=== PATIENT | female | born 1980 | race Caucasian/White ===

== ENCOUNTER → 2020-04-10 15:22 | Outpatient (BNVA) | payer OTHER, SELFPAY | PROVIDERS: Family Provider Nurse Practitioner Family; PCP Nurse Practitioner Family; Visit Provider Internal Medicine Rheumatology | DX: M05.79 Rheumatoid arthritis with rheumatoid factor of multiple sites without organ or systems involvement (principal); Z79.899 Other long term (current) drug therapy; H93.13 Tinnitus, bilateral; L81.9 Disorder of pigmentation, unspecified; D66 Hereditary factor VIII deficiency | CPT/HCPCS: 99214 ==

== ENCOUNTER → 2020-07-11 15:12 | Outpatient (BNVA) | payer OTHER, SELFPAY | PROVIDERS: Family Provider Nurse Practitioner Family; PCP Nurse Practitioner Family; Visit Provider Internal Medicine Rheumatology | DX: M05.79 Rheumatoid arthritis with rheumatoid factor of multiple sites without organ or systems involvement (principal); Z79.899 Other long term (current) drug therapy; D66 Hereditary factor VIII deficiency; H93.13 Tinnitus, bilateral | CPT/HCPCS: 99213; 99441 ==

== ENCOUNTER → 2021-03-21 14:53 | Outpatient (BNVA) | payer OTHER, SELFPAY | PROVIDERS: Family Provider Nurse Practitioner Family; PCP Nurse Practitioner Family; Visit Provider Internal Medicine Rheumatology | DX: M05.79 Rheumatoid arthritis with rheumatoid factor of multiple sites without organ or systems involvement (principal); Z79.899 Other long term (current) drug therapy; D66 Hereditary factor VIII deficiency; H93.19 Tinnitus, unspecified ear; Z87.892 Personal history of anaphylaxis; Z91.030 Bee allergy status; Z71.89 Other specified counseling | CPT/HCPCS: 99214 ==

== ENCOUNTER → 2021-05-02 11:48 | Outpatient (BNVA) | payer OTHER, SELFPAY | PROVIDERS: Family Provider Nurse Practitioner Family; PCP Nurse Practitioner Family; Visit Provider Nurse Practitioner Family | DX: Z20.822 Contact with and (suspected) exposure to COVID-19 (principal) | CPT/HCPCS: 87635 ==

== ENCOUNTER → 2021-09-05 08:50 | Outpatient (BNVA) | payer OTHER, SELFPAY | PROVIDERS: Family Provider Nurse Practitioner Family; PCP Nurse Practitioner Family; Visit Provider Nurse Practitioner Family | DX: Z20.822 Contact with and (suspected) exposure to COVID-19 (principal) | CPT/HCPCS: 87635 ==

== ENCOUNTER 2021-09-11 09:53 | Outpatient (CLI) | payer OTHER, SELFPAY ==
[2021-09-11 10:05] VITALS: BP 128/83; PULSE 64; RESP 18; TEMP 36.8; O2SAT 98; BMI 49.4
[2021-09-11 11:10] VITALS: BP 128/83; PULSE 64; RESP 18; TEMP 36.4; O2SAT 99
[2021-09-11 12:10] VITALS: BP 137/69; PULSE 77; RESP 16; TEMP 36.6; O2SAT 99
== END 2021-09-11 09:54 | disposition home or self-care (01) ==
LOC: OPS 09:56
PROVIDERS: PCP Nurse Practitioner Family; Visit Provider Nurse Practitioner
DX: U07.1 COVID-19 (principal)
CPT/HCPCS: 96365

== ENCOUNTER → 2022-02-11 14:15 | Outpatient (BNVA) | payer OTHER, SELFPAY | PROVIDERS: Visit Provider Obstetrics & Gynecology | DX: Z01.419 Encounter for gynecological examination (general) (routine) without abnormal findings (principal) | CPT/HCPCS: 87624 ==

== ENCOUNTER 2022-04-30 07:42 | Emergency (ER) | payer OTHER, BC, MEDICAID, SELFPAY ==
[2022-04-30 07:47] VITALS: BP 180/117; PULSE 96; RESP 17; TEMP 36.7; O2SAT 98; BMI 49.4
--- NOTE | 2022-04-30 08:21 | PC.NURSE ---
pt reports she woke up this morning and could barely move due to back pain. denies pain prior to bed. reports she just got back from camping and sleeping on an air mattress for a week. Reports pain is to right flank. pain is described as a stabbing pain that radiates down both legs with movement. Denies symptoms. reports good water intake. Denies injury.
--- NOTE | 2022-04-30 08:27 | W.ED.BACK ---
HPI - Back Pain/Injury General: Chief Complaint: Back Pain/Injury Stated Complaint: back pain Time Seen by Provider: 04/30/22 07:54 Source: patient Mode of arrival: ambulatory History of Present Illness: 41-year-old female presents emergency room with complaint of back pain. Pain is in the low back does not radiate into the legs she denies any difficulty with bowel or bladder. She had been camping over the weekend. She has been participating in more physical engaging activities. This morning she woke with severe back pain difficult time ambulating movement without pain. She has no radiation of pain into the lower extremities. No previous episodes of severe back pain no previous advanced imaging no previous interventions or surgeries. No recent identifiable triggering traumas. MD elicited complaint: back pain Pertinent past history: prior back pain Onset (ago): day(s) (1) Timing: constant Severity: moderate Similar Symptoms Previously: Yes Quality: aching Location: lumbar spine Radiation: none Exacerbating factors: none Relieving factors: none Context: while lifting, turning/twisting and bending Associated symptoms: Deny abdominal pain, arthralgias, chills, change in bowel habits, difficulty walking, dysuria, fatigue, fecal incontinence, fever(s), hematuria, myalgias, nausea, numbness, syncope, tingling/numbness/burning, urinary frequency, urinary urgency, vomiting or weakness Review of Systems Const: Denies: fever(s), chills or fatigue ENMT: Denies: throat pain, ear or mastoid pain, nasal discharge or nasal congestion Card: Denies: chest pain, palpitations or syncope Resp: Denies: dyspnea, productive cough or non-productive cough GI: Denies: abdominal pain, nausea, vomiting, fecal incontinence or change in bowel habits : Denies: flank pain, difficulty voiding, dysuria, urinary frequency, urinary urgency or hematuria Musc: Reports: back pain Skin/Breast: Denies: rash or pruritus Neuro: Denies: difficulty walking PFSH ED PFSH: Medical History Acute low back pain Allergic rhinitis due to allergen Discoloration of skin High risk medication use Immunization counseling Medication monitoring encounter No pertinent past medical history neghx: dm,htn,dvt/pe PCP: none Seropositive rheumatoid arthritis Seropositive rheumatoid arthritis of multiple sites Tinnitus of both ears Surgical History History of D&C History of ear surgery X4 Previous section Family History Father Bleeding disorder factor 9 hemophilia Family/Other Bleeding disorder paternal uncle factor 9 hemophilia Breast cancer paternal aunt X2 Uterine cancer paternal aunt Prostate cancer paternal uncle Denies family history of Rheumatoid arthritis Cervical cancer Colon cancer Ovarian cancer Diabetes Lupus Heart disease Hyperlipidemia Hypertension Thyroid disease Stroke Social History Smoking and tobacco status: former smoker Alcohol intake: never History of recent travel: No Physical Exam Const: COMMON NORMALS: no acute distress GENERAL APPEARANCE: cooperative and comfortable ORIENTATION/CONSCIOUSNESS: Yes awake, Yes oriented to person, Yes oriented to place and Yes oriented to time HENMT: COMMON NORMALS: normocephalic, atraumatic and hearing grossly normal bilaterally HEAD & SCALP: normocephalic and atraumatic Resp: COMMON NORMALS: normal respiratory effort, No retractions, No use of accessory muscles and clear to auscultation bilaterally AUSCULTATION: clear to auscultation bilaterally Cardio: COMMON NORMALS: regular rate, regular rhythm and No murmurs present (Cardio) RATE: regular rate RHYTHM: regular rhythm GI: COMMON NORMALS: Soft to palpation and No hepatosplenomegaly present AUSCULTATION: Yes normoactive bowel sounds PALPATION: Yes Soft to palpation, No Tenderness to palpation present (GI), No Guarding due to palpation present (GI) and Yes No hepatosplenomegaly present Extremity: COMMON NORMALS: normal to inspection, capillary refill normal, no clubbing, cyanosis or edema, no calf tenderness and no pedal edema Neuro: SENSORIUM/ORIENTATION: Yes oriented to person, Yes oriented to place and Yes oriented to time Skin: COMMON NORMALS: no rashes or lesions noted GENERAL SKIN EXAM: no rashes or lesions noted Course Vital Signs: Vital signs: Vital Signs Temperature 98.0 F 04/30/22 07:47 Pulse Rate 58 L 04/30/22 09:18 Respiratory Rate 18 04/30/22 09:18 Blood Pressure 134/89 04/30/22 09:18 Pulse Oximetry 98 04/30/22 09:18 Oxygen Delivery Me thod 04/30/22 07:47 MDM - Back Pain/Injury Medical Decision Making Musculoskeletal low back pain treat symptomatically follow-up with primary care if worsens return. Medical Records I reviewed the patient's medical records. Labs I reviewed the patient's lab results. Discharge Plan Discharge Patient Disposition: Home Clinical Impression: Strain of lumbar region Condition: Stable Prescriptions: New prednisone 20 mg tablet 20 mg PO TID Qty: 15 0RF Rx Instructions: 1 p.o. 3 times daily x3 days, 1 p.o. twice daily x2 days, 1 p.o. daily x2 days diclofenac sodium 75 mg tablet,delayed release (DR/EC) 75 mg PO Q12H PRN (Reason: pain) Qty: 20 0RF tizanidine 4 mg tablet 4 mg PO Q6H PRN (Reason: muscle spasticity) Qty: 20 0RF Rx Instructions: do not exceed 3 doses per 24 hrs No Action multivitamin Tablet 1 tab PO DAILY Orencia ClickJect 125 mg/mL auto-injector 125 mg SUBCUT .Q7days Qty: 4 3RF sulfasalazine 500 mg tablet 1 g PO BID Qty: 120 3RF Rx Instructions: Take 1 QD daily x1wk then 1 BID x1wk then 2 in AM and 1 HS for 1wk then stay on 2 BID. give with food (meal/snack) loratadine 10 mg capsule 10 mg PO BID Qty: 30 1RF fluticasone propionate 50 mcg/actuation spray,suspension 1 spray intranasal BID Qty: 16 1RF Rx Instructions: administer into each nostril norgestimate-ethinyl estradiol [Tri-Sprintec (28)] 0.18/0.215/0.25 mg-35 mcg (28) tablet 1 tab PO DAILY Qty: 84 0RF Discharge Orders: Discharge ED (Routine); Ordered 04/30/22 Ordered By: Jorge Sam Discharge Diet: Usual diet Discharge Activity: Limit activity as instructed Patient Instructions: Acute Low Back Pain (ED), Opioid Safety Activity Restrictions/Additional Instructions: Avoid stooping lifting and bending do not work below the waist or above the shoulders. Case management make arrangements for you to follow-up with primary care physician. Coding Level of Care Code ED [facility] [employer] for Cassy Bill
[2022-04-30] MEDS: dexamethasone 10 mg/mL INJ IM (08:43)
[2022-04-30] MEDS: ketorolac 60 mg/2 mL INJ IM (08:46)
[2022-04-30] MEDS: orphenadrine 30 mg/mL Inj 2 mL 60 MG IM (08:47)
[2022-04-30 08:57] VITALS: BP 128/86; PULSE 85; O2SAT 97
[2022-04-30 09:18] VITALS: BP 134/89; PULSE 58; RESP 18; O2SAT 98
== END 2022-04-30 09:21 | disposition home or self-care (01) ==
PROVIDERS: Emergency Provider Family Medicine
DX: S39.012A Strain of muscle, fascia and tendon of lower back, initial encounter (principal); Z87.891 Personal history of nicotine dependence; X58.XXXA Exposure to other specified factors, initial encounter
CPT/HCPCS: 96372; 99284; J1100; J1885; J2360

== ENCOUNTER → 2022-05-01 15:22 | Outpatient (BNVA) | payer OTHER, BC, MEDICAID, SELFPAY | PROVIDERS: Visit Provider Internal Medicine Rheumatology | DX: M05.79 Rheumatoid arthritis with rheumatoid factor of multiple sites without organ or systems involvement (principal); Z79.899 Other long term (current) drug therapy; M54.50 Low back pain, unspecified; M45.6 Ankylosing spondylitis lumbar region | CPT/HCPCS: 72100; 72202; 80076; 82565; 85025; 85651; 86140; 86812 ==

== ENCOUNTER 2022-05-17 10:09 | Outpatient (CLI) | payer OTHER, BC, MEDICAID, SELFPAY ==
--- NOTE | 2022-05-17 10:22 | XR_ITS ---
WS: [id number] Right shoulder, 2 views, 05/17/2022 Clinical Data: chronic pain of right shoulder Comparison: Right shoulder, 11/28/2016. Findings: No fractures or dislocations are seen. The AC joint is normal. The adjacent right clavicle, right sca pula and ribs are normal. The soft tissues are unremarkable. XR/XR shoulder RT min 2V* [id number] Impression: Negative right shoulder.
== END 2022-05-17 10:10 | disposition home or self-care (01) ==
LOC: RAD 10:14
PROVIDERS: PCP Family Medicine; Visit Provider Family Medicine
DX: M25.511 Pain in right shoulder (principal); Z13.6 Encounter for screening for cardiovascular disorders; E03.9 Hypothyroidism, unspecified
CPT/HCPCS: 73030; 80061; 83036; 84439; 84443; 85025

== ENCOUNTER → 2022-07-15 14:44 | Outpatient (BNVA) | payer OTHER, BC, MEDICAID, SELFPAY | PROVIDERS: PCP Family Medicine; Visit Provider Family Medicine | DX: E03.9 Hypothyroidism, unspecified (principal) | CPT/HCPCS: 84439; 84443 ==

== ENCOUNTER → 2022-09-03 12:57 | Outpatient (BNVA) | payer OTHER, BC, MEDICAID, SELFPAY | PROVIDERS: PCP Family Medicine; Visit Provider Internal Medicine Rheumatology | DX: M05.9 Rheumatoid arthritis with rheumatoid factor, unspecified (principal); Z79.899 Other long term (current) drug therapy | CPT/HCPCS: 36415; 80076; 82565; 85025; 86140 ==

== ENCOUNTER → 2022-09-19 15:46 | Outpatient (BNVA) | payer OTHER, BC, MEDICAID, SELFPAY | PROVIDERS: PCP Family Medicine; Visit Provider Family Medicine | DX: E03.9 Hypothyroidism, unspecified (principal) | CPT/HCPCS: 84439; 84443 ==

== ENCOUNTER 2022-09-26 16:33 | Outpatient (RCR) | payer OTHER, BC, MEDICAID, SELFPAY | END 2022-10-22 23:59 | disposition home or self-care (01) | LOC: SPT 16:33 | PROVIDERS: PCP Family Medicine; Visit Provider Internal Medicine Rheumatology | DX: M54.9 Dorsalgia, unspecified (principal); G89.29 Other chronic pain | CPT/HCPCS: 97110; 97161 ==

== ENCOUNTER 2022-10-23 06:00 | Outpatient (RCR) | payer OTHER, BC, MEDICAID, SELFPAY | END 2022-11-13 12:34 | disposition home or self-care (01) | LOC: SPT 06:00 | PROVIDERS: PCP Family Medicine; Visit Provider Internal Medicine Rheumatology | DX: M54.9 Dorsalgia, unspecified (principal); G89.29 Other chronic pain | CPT/HCPCS: 97110 ==

== ENCOUNTER → 2022-12-05 12:46 | Outpatient (BNVA) | payer OTHER, BC, MEDICAID, SELFPAY | PROVIDERS: PCP Family Medicine; Visit Provider Internal Medicine Rheumatology | DX: M05.79 Rheumatoid arthritis with rheumatoid factor of multiple sites without organ or systems involvement (principal); Z79.899 Other long term (current) drug therapy | CPT/HCPCS: 36415; 80076; 82565; 85025; 86140 ==

== ENCOUNTER → 2023-03-06 09:50 | Outpatient (BNVA) | payer OTHER, BC, MEDICAID, SELFPAY | PROVIDERS: PCP Family Medicine; Visit Provider Internal Medicine Rheumatology | DX: M05.79 Rheumatoid arthritis with rheumatoid factor of multiple sites without organ or systems involvement (principal); Z79.899 Other long term (current) drug therapy | CPT/HCPCS: 36415; 80076; 82565; 85025; 86140 ==

== ENCOUNTER → 2023-04-30 19:40 | Outpatient (BNVA) | payer OTHER, BC, MEDICAID, SELFPAY | PROVIDERS: PCP Family Medicine; Visit Provider Emergency Medicine | DX: J02.9 Acute pharyngitis, unspecified (principal) | CPT/HCPCS: 87071; 87880 ==

== ENCOUNTER → 2023-05-12 15:40 | Outpatient (BNVA) | payer OTHER, BC, MEDICAID, SELFPAY | PROVIDERS: PCP Family Medicine; Visit Provider Family Medicine | DX: E03.9 Hypothyroidism, unspecified (principal) | CPT/HCPCS: 84439; 84443 ==

== ENCOUNTER 2023-06-02 08:15 | Outpatient (CLI) | payer OTHER, BC, MEDICAID, SELFPAY ==
--- NOTE | 2023-06-02 08:24 | MM_ITS ---
WS: [id number] BILATERAL SCREENING DIGITAL TOMOSYNTHESIS MAMMOGRAM WITH CAD HISTORY: screening COMPARISON: None available. Bilateral CC and MLO views with tomosynthesis and synthetic mammography submitted. Computer aided det ection analyzed. Breast composition: There are scattered areas of fibroglandular density. No suspicious masses, microc alcifications or architectural distortion. Benign calcification anterior RIGHT breast. IMPRESSION: MM/[place] [id number] BI-RADS: 2-Benign FOLLOW UP: 1 Year Follow-up
== END 2023-06-02 08:16 | disposition home or self-care (01) ==
PROVIDERS: PCP Family Medicine; Visit Provider Family Medicine
DX: Z12.31 Encounter for screening mammogram for malignant neoplasm of breast (principal)
CPT/HCPCS: 77063; 77067

== ENCOUNTER 2023-06-20 14:02 | Outpatient (CLI) | payer OTHER, BC, MEDICAID, SELFPAY ==
[2023-06-20 14:36] LABS: Basophils # 0.1 10^3/uL (0.0-0.1); Basophils % 0.5 %; Eosinophils # 0.2 10^3/uL (0.0-0.8); Eosinophils % 1.7 %; Hematocrit 36.9 % (36-47); Lymphocytes # 2.9 10^3/uL (0.8-4.8); Lymphocytes % 27.4 %; Mean Corpuscular HGB Conc 32.8 g/dL (30-55); Mean Corpuscular Hemoglobin 30.8 pg (27-33); Mean Corpuscular Volume 93.9 fl (85-98); Mean Platelet Volume 10.6 fL (7.4-10.4); Monocytes # 0.6 10^3/uL (0.2-0.9); Monocytes % 5.3 %; Neutrophils # 6.75 10^3/uL (1.8-7.7); Neutrophils % 64.5 %; Nucleated Red Blood Cells % 0 %; Platelet Count 318 10^3/cmm (157-399); Red Blood Count 3.93 10^6/uL (3.85-5.65); Red Cell Distribution Width 12.8 % (12.1-15.1); White Blood Count 10.45 10^3/uL (3.29-11.43)
[2023-06-20 15:04] LABS: Alanine Aminotransferase 33 U/L (0-33); Albumin Level 3.9 g/dL (3.5-5.2); Alkaline Phosphatase 104 U/L (35-105)
[2023-06-20 15:32] LABS: Aspartate Amino Transferase 27 U/L (0-32); Glomerular Filtration Rate 92.7 mL/min (90-130); Total Bilirubin 0.3 mg/dL (0.15-1.2); Total Protein 6.9 g/dL (6.6-8.7)
== END 2023-06-20 14:03 | disposition home or self-care (01) ==
PROVIDERS: PCP Family Medicine; Visit Provider Internal Medicine Rheumatology
DX: M05.79 Rheumatoid arthritis with rheumatoid factor of multiple sites without organ or systems involvement (principal); Z79.899 Other long term (current) drug therapy
CPT/HCPCS: 36415; 80076; 82565; 85025; 86140

== ENCOUNTER → 2023-09-18 17:35 | Outpatient (BNVA) | payer OTHER, BC, MEDICAID, SELFPAY | PROVIDERS: PCP Family Medicine; Visit Provider Internal Medicine Rheumatology | DX: M05.79 Rheumatoid arthritis with rheumatoid factor of multiple sites without organ or systems involvement (principal) | CPT/HCPCS: 36415; 80076; 82565; 85025; 86140 ==

== ENCOUNTER → 2023-12-22 11:09 | Outpatient (BNVA) | payer OTHER, BC, MEDICAID, SELFPAY | PROVIDERS: PCP Family Medicine; Visit Provider Internal Medicine Rheumatology | DX: M05.79 Rheumatoid arthritis with rheumatoid factor of multiple sites without organ or systems involvement (principal); Z79.899 Other long term (current) drug therapy | CPT/HCPCS: 36415; 80076; 82565; 85025; 86140 ==

== ENCOUNTER 2024-03-30 08:39 | Outpatient (CLI) | payer OTHER, BC, MEDICAID, SELFPAY ==
[2024-03-30 09:09] LABS: Basophils # 0.1 10^3/uL (0.0-0.1); Basophils % 0.7 %; Eosinophils # 0.1 10^3/uL (0.0-0.8); Eosinophils % 1.8 %; Hematocrit 37.9 % (36-47); Lymphocytes # 2.5 10^3/uL (0.8-4.8); Lymphocytes % 34.9 %; Mean Corpuscular HGB Conc 32.7 g/dL (30-55); Mean Corpuscular Hemoglobin 30.8 pg (27-33); Mean Corpuscular Volume 94.3 fl (85-98); Mean Platelet Volume 10.5 fL (7.4-10.4); Monocytes # 0.6 10^3/uL (0.2-0.9); Neutrophils # 3.85 10^3/uL (1.8-7.7); Neutrophils % 54.2 %; Nucleated Red Blood Cells % 0 %; Platelet Count 318 10^3/cmm (157-399); Red Blood Count 4.02 10^6/uL (3.85-5.65); Red Cell Distribution Width 12.7 % (12.1-15.1); White Blood Count 7.11 10^3/uL (3.29-11.43)
[2024-03-30 09:43] LABS: Alanine Aminotransferase 34 U/L (0-33); Albumin Level 4.3 g/dL (3.5-5.2); Alkaline Phosphatase 104 U/L (35-105); Aspartate Amino Transferase 32 U/L (0-32); C Reactive Protein 23.8 mg/L (0.0-4.9); Total Bilirubin 0.3 mg/dL (0.15-1.2); Total Protein 7.3 g/dL (6.6-8.7)
[2024-03-30 09:50] LABS: T3 Free 2.7 PG/ML (2.0-4.4); Thyroid Stimulating Hormone 2.34 uIU/mL (0.27-4.20)
== END 2024-03-30 08:40 | disposition home or self-care (01) ==
LOC: LAB 08:44
PROVIDERS: Absent Provider Nurse Practitioner Family; PCP Family Medicine; Visit Provider Internal Medicine Rheumatology
DX: M05.79 Rheumatoid arthritis with rheumatoid factor of multiple sites without organ or systems involvement (principal); Z79.899 Other long term (current) drug therapy; E03.9 Hypothyroidism, unspecified
CPT/HCPCS: 36415; 80076; 82565; 84439; 84443; 84481; 85025; 86140

== ENCOUNTER → 2024-05-03 12:11 | Outpatient (BNVA) | payer OTHER, BC, MEDICAID, SELFPAY | PROVIDERS: PCP Family Medicine; Visit Provider Internal Medicine Rheumatology | DX: M05.9 Rheumatoid arthritis with rheumatoid factor, unspecified (principal); Z79.899 Other long term (current) drug therapy | CPT/HCPCS: 80076; 82565; 85025; 85651; 86140 ==

== ENCOUNTER → 2024-12-20 12:27 | Outpatient (BNVA) | payer OTHER, SELFPAY | PROVIDERS: PCP Family Medicine; Visit Provider Internal Medicine Rheumatology | DX: M05.79 Rheumatoid arthritis with rheumatoid factor of multiple sites without organ or systems involvement (principal); Z79.899 Other long term (current) drug therapy | CPT/HCPCS: 36415; 80076; 82565; 85025; 85651; 86140; 86480; 86704; 86803; 87340 ==

== ENCOUNTER 2025-01-06 10:47 | Outpatient (CLI) | payer OTHER, SELFPAY ==
[2025-01-06 12:12] LABS: Thyroid Stimulating Hormone 2.46 uIU/mL (0.27-4.20)
== END 2025-01-06 10:48 | disposition home or self-care (01) ==
PROVIDERS: PCP Family Medicine; Visit Provider Nurse Practitioner Family
DX: E03.9 Hypothyroidism, unspecified (principal)
CPT/HCPCS: 36415; 84443

== ENCOUNTER → 2025-04-28 14:35 | Outpatient (BNVA) | payer OTHER, SELFPAY | PROVIDERS: PCP Family Medicine; Visit Provider Internal Medicine Rheumatology | DX: Z79.899 Other long term (current) drug therapy (principal) | CPT/HCPCS: 36415; 80076; 82306; 82565; 85025; 85651; 86140 ==